=== PATIENT | male | born 1990 | race African-American/Black ===

== ENCOUNTER 2017-01-20 22:22 | Emergency (ER) | payer SELFPAY | END 2017-01-21 00:23 | disposition home or self-care (01) | LOC: D.ER 22:22 | DX: B34.9 Viral infection, unspecified (principal); F17.200 Nicotine dependence, unspecified, uncomplicated ==

== ENCOUNTER 2018-08-02 03:49 | Emergency (ER) | payer OTHER ==
[~2018-08-02] VITALS: Ht 180.3 cm; Wt 106.6 kg
[2018-08-02 03:52] VITALS: Ht 180.3 cm; Wt 106.6 kg
[2018-08-02] MEDS ORDERED: HYDROCODON-ACE1 EAC7 PO (04:58)
[2018-08-02] MEDS ORDERED: CLEOCIN HCL300 MG PO (04:58)
[2018-08-02 05:13] VITALS: BP 148/79
== END 2018-08-02 05:13 | disposition home or self-care (01) ==
LOC: D.ER 03:49
DX: L02.212 Cutaneous abscess of back [any part, except buttock and flank] (principal); F17.200 Nicotine dependence, unspecified, uncomplicated

== ENCOUNTER 2019-08-07 17:02 | Observation (INO) | payer MEDICAID ==
[~2019-08-07] VITALS: Ht 180.3 cm; Wt 108.0 kg
[~2019-08-07 17:02] MED LIST: CLEOCIN HCL300 MG PO; HYDROCODON-ACE1 EAC7 PO
[2019-08-07 17:36] LABS: BASOPHILS 0.3 % (0-2); EOSINOPHILS 2.4 % (0-7); HEMATOCRIT 41.1 % (42.0-54.0); HEMOGLOBIN 14.4 g/dL (13.5-17.5); IMMATURE GRANULOCYTES 0.3 % (0-5); MCH 27.6 pg (26.0-34.0); MCV 78.7 fL (80.0-100.0); MONOCYTES 9.5 % (2-11); NEUTROPHILS 67.5 % (40-80); PLATELET COUNT 337 10x3/uL (130-400); RBC 5.22 10x6/uL (4.20-6.10); RDW 14.4 % (11.5-14.5); WBC 11.9 10x3/uL (4.8-10.8)
[2019-08-07 17:41] LABS: APPEARANCE CLEAR (CLEAR); BILIRUBIN NEGATIVE (NEGATIVE); COLOR YELLOW (YELLOW); GLUCOSE NEGATIVE (NEGATIVE); KETONE NEGATIVE (NEGATIVE); NITRITE NEGATIVE (NEGATIVE); PROTEIN NEGATIVE (NEGATIVE); SPECIFIC GRAVITY 1.015 (1.005-1.020); UROBILINOGEN NORMAL (NORMAL)
[2019-08-07 17:53] LABS: ALBUMIN 3.9 g/dL (3.4-5.0); ALKALINE PHOSPHATASE 158 U/L (46-116); ALT (SGPT) 80 U/L (10-68); BILIRUBIN - TOTAL 0.51 mg/dL (0.2-1.3); CALC OSMOLALITY 276 mosm/kg (275-300); CARBON DIOXIDE 22.2 mmol/L (21.0-32.0); CHLORIDE - SERUM 104 mmol/L (98-107); CREATININE - SERUM 1.2 mg/dL (0.6-1.3); GLUCOSE 102 mg/dL (74-106); POTASSIUM - SERUM 3.7 mmol/L (3.5-5.1); PROTEIN - SERUM 8.4 g/dL (6.4-8.2); SODIUM 138 mmol/L (136-145); UREA NITROGEN 14 mg/dL (7-18); eGFR NON AFRICAN AMERICAN 77 mL/min (90-120)
[2019-08-07 17:56] LABS: AMYLASE - SERUM 57 U/L (25-115); LIPASE 283 U/L (73-393)
[2019-08-07 18:04] LABS: TROPONIN-I < 0.017 ng/mL (0.000-0.060)
--- NOTE | 2019-08-07 21:15 | NUR ---
ADMIT TO ROOM 2112 FROM ER. ALERT/ORIENTED. IVF NS @ 100ML/HR INFUSING TO RIGHT A/C. ADMISSION HISTORY AND ASSESSMENT COMPLETED. HOME MEDS REVIEWED. PT DOES NOT TAKE ANYTHING, PLAN OF CARE REVIEWED WITH PATIENT. NPO UNTIL SEEN BY DR VALENZUELA IN AM. PT TEACHING ON NPO STATUS UNTIL SEEN BY MD. CALL LIGHT IN REACH.
[2019-08-08] VITALS: BP 134/72
[2019-08-08 00:31] VITALS: BP 148/78; BMI 33.3
--- NOTE | 2019-08-08 02:30 | NUR ---
RESTING IN BED WITH NO DISTRESS. CPOC.
[2019-08-08 04:00] VITALS: BP 128/64
[2019-08-08 05:22] LABS: BASOPHILS 0.2 % (0-2); EOSINOPHILS 2.5 % (0-7); HEMATOCRIT 38.3 % (42.0-54.0); HEMOGLOBIN 13.2 g/dL (13.5-17.5); IMMATURE GRANULOCYTES 0.4 % (0-5); MCH 27.2 pg (26.0-34.0); MCHC 34.5 g/dL (31.0-37.0); MEAN PLATELET VOLUME 9.8 fL (7.4-10.4); MONOCYTES 12.2 % (2-11); NEUTROPHILS 57.7 % (40-80); PLATELET COUNT 290 10x3/uL (130-400); RBC 4.85 10x6/uL (4.20-6.10); RDW 14.5 % (11.5-14.5)
--- NOTE | 2019-08-08 05:37 | NUR ---
PT HAS RESTED WITH NO DISTRESS. IVF INFUSING. NPO PER ORDERS. CALL LIGHT IN REACH.
[2019-08-08 05:51] LABS: ALBUMIN 3.3 g/dL (3.4-5.0); BILIRUBIN - DIRECT 0.09 mg/dL (0.00-0.30); BILIRUBIN - INDIRECT 0.2 mg/dL (0.00-1.00); BILIRUBIN - TOTAL 0.29 mg/dL (0.2-1.3); PROTEIN - SERUM 7.6 g/dL (6.4-8.2)
--- NOTE | 2019-08-08 07:23 | NUR ---
PT RESTING PEACEFULLY, SNORING SLIGHTLY. BREATHS EVEN, REGULAR, AND UNLABORED. NO SIGNS OR SYMPTOMS OF ACUTE DISTRESS AT THIS TIME, CL IN REACH, SRX2.
[2019-08-08 08:24] VITALS: BP 118/64
[2019-08-08 11:33] VITALS: BP 137/65
[2019-08-08 13:05] VITALS: BMI 33.2
--- NOTE | 2019-08-08 14:53 | NUR ---
I have reviewed this patient and I concur with the Shift Assessment completed by the Licensed Practical Nurse today this shift.
[2019-08-08 15:47] VITALS: Ht 180.3 cm; Wt 108.0 kg
[2019-08-08 16:09] LABS: % SATURATION 25 % (15-55); IRON 76 ug/dl (35-150); TOTAL IRON BIND CAPACITY 297 ug/dl (260-445); UNSAT IRON BIND CAPACITY 221 ug/dl (150-375)
--- NOTE | 2019-08-08 16:46 | NUR ---
PT AMBULATED OUT VIA SELF, DENIED WHEELCHAIR. ALL EBLONGINGS COLLECTED. NO COMPLAINTS..
--- NOTE | 2019-08-09 07:27 | MORECARE ---
CASE MANAGEMENT DISCHARGE SUMMARY PATIENT: RIP BAGLEY UNIT: [id number] ADM DATE: 08/07/19 AGE: 28 : [birth year] SEX: M ROOM/BED: D.2112 AUTHOR: STEPHAN RUIZ PHYSICIAN: REFERRING PHYSICIAN: FARTUN KENNEDY MD DATE OF SERVICE: 08/09/19 Discharge Plan Patient Name: RIP BAGLEY Facility: [facility]:[place] : 1990 Planned Disposition: Home Anticipated Discharge Date: 08/08/19 Discharge Date: 08/08/2019 Expected LOS: 1 Initial Reviewer: [id number] Initial Review Date: 08/09/2019 Generated: 08/09/19 8:26 am Patient Name: RIP BAGLEY Page [id number] at 0727 All edits/amendments must be made on the electronic document DICTATION DATE: 08/09/19725 TAX ASSOCIATE: JOSE 08/09/19725 RPT#: [id number] DC DATE:08/08/19 STATUS: DIS IN [facility] [address] [place] [address] END OF REPORT
== END 2019-08-08 16:46 | disposition home or self-care (01) ==
LOC: D.ER 17:02 → D.M2 20:02 → OBSVTIME 20:02 → D.M2 20:02
PROVIDERS: Emergency Medicine; Family Medicine; ADMIT Internal Medicine Nephrology; ATTEND Internal Medicine Nephrology
DX: A08.4 Viral intestinal infection, unspecified (principal); R74.8 Abnormal levels of other serum enzymes; R59.1 Generalized enlarged lymph nodes; D64.9 Anemia, unspecified; F17.203 Nicotine dependence unspecified, with withdrawal; E66.01 Morbid (severe) obesity due to excess calories; Z68.33 Body mass index [BMI] 33.0-33.9, adult; R16.0 Hepatomegaly, not elsewhere classified